=== PATIENT | female | born 1965 | race Two or more races ===

== ENCOUNTER 2022-10-16 14:05 | Emergency (ER) | payer MEDICAID ==
[~2022-10-16] VITALS: Ht 154.9 cm; Wt 70.3 kg
[2022-10-16 14:35] VITALS: BP 128/80
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
[2022-10-16] MEDS ORDERED: ALPR0.5T PO (15:40)
--- NOTE | 2022-10-16 16:41 | NUR ---
Patient discharged to home in stable condition. Written and verbal after care instructions given. Patient verbalizes understanding of instruction.
== END 2022-10-16 16:54 | disposition home or self-care (01) ==
LOC: ER 14:11
DX: F40.248 Other situational type phobia (principal)